=== PATIENT | female | born 1970 | race Caucasian/White ===

== ENCOUNTER → 2021-06-21 | Outpatient (CLI) | payer OTHER | LOC: KOH-I 15:31 | DX: M47.26 Other spondylosis with radiculopathy, lumbar region (principal) | CPT/HCPCS: 72100 ==

== ENCOUNTER 2021-07-06 11:47 | Emergency (ER) | payer OTHER ==
[2021-07-06 12:13] LABS: HEMOGLOBIN 14.2 gm/dl (12.3-15.3); RED BLOOD COUNT 4.84 M/UL (4.00-5.10); WHITE BLOOD COUNT 8.1 K/UL (4.5-11.0)
[2021-07-06 12:50] LABS: BUN/CREATININE RATIO 19 (0-10)
== END 2021-07-06 16:42 | disposition left against medical advice (07) ==
LOC: ER1 11:47
PROVIDERS: Physician Assistant
DX: R07.9 Chest pain, unspecified (principal); I10 Essential (primary) hypertension
CPT/HCPCS: 71045; 80048; 82550; 82553; 83874; 84484; 85025; 93005; 99283

== ENCOUNTER → 2021-08-29 | Outpatient (CLI) | payer OTHER | LOC: HEART 5 10:48 | DX: R07.9 Chest pain, unspecified (principal) ==